=== PATIENT | female | born 1955 | race Caucasian/White ===

== ENCOUNTER → 2017-08-14 | Outpatient (CLI) | payer OTHER ==
[~2017-08-14] MED LIST: BIEST/PROG PO; Estradiol1 MG PO; METF500 PO
== END | disposition home or self-care (01) ==
LOC: LAB 11:01 → LAB SHORT 11:01
PROVIDERS: Nurse Practitioner Family
DX: Z01.419 Encounter for gynecological examination (general) (routine) without abnormal findings (principal)
CPT/HCPCS: 87624; G0145

== ENCOUNTER → 2020-07-19 | Outpatient (CLI) | payer BC | END | disposition home or self-care (01) | LOC: LAB SHORT 18:44 | DX: K86.3 Pseudocyst of pancreas (principal); R10.12 Left upper quadrant pain; Z87.19 Personal history of other diseases of the digestive system | CPT/HCPCS: 82656 ==